=== PATIENT | male | born 1995 | race Caucasian/White ===

== ENCOUNTER 2018-03-12 05:05 | Emergency (ER) | payer SELFPAY ==
[~2018-03-12] VITALS: Ht 175.3 cm; Wt 82.0 kg
[2018-03-12] MEDS ORDERED: IBUPROFEN 600MG TABLET PO ONE (06:30)
[2018-03-12 09:14] VITALS: BP 114/55
== END 2018-03-12 09:18 | disposition home or self-care (01) ==
LOC: ER 07:20
DX: M54.2 Cervicalgia (principal); J45.909 Unspecified asthma, uncomplicated; Z88.0 Allergy status to penicillin; Z90.89 Acquired absence of other organs
CPT/HCPCS: 70490; 71045; 87070; 87430; 99285